=== PATIENT | female | born 1985 | race Asian ===

== ENCOUNTER 2016-09-11 14:14 | Emergency (ER) | payer OTHER ==
[~2016-09-11] VITALS: Ht 157.5 cm; Wt 81.6 kg
[~2016-09-11 14:14] MED LIST: ASPI81TA85 PO; COLA100C PO; DIBU1OIN TOP; IBUP600T26 PO; LABE10TAB PO; LABE30TA PO; PREN29CH PO; PRENTAB9 PO; PROC30TA PO; TYLE325T5 PO
[2016-09-11 14:15] VITALS: BP 169/126
[2016-09-11] MEDS ORDERED: DOXY100C37 PO (14:55)
== END 2016-09-11 15:07 | disposition home or self-care (01) ==
LOC: M ED 15:01
DX: L03.114 Cellulitis of left upper limb (principal); I10 Essential (primary) hypertension; Z87.891 Personal history of nicotine dependence